=== PATIENT | female | born 1970 | race Caucasian/White ===

== ENCOUNTER 2016-11-03 21:44 | Emergency (ER) | payer BC ==
[~2016-11-03] VITALS: Ht 157.5 cm; Wt 68.0 kg
[2016-11-03 21:59] VITALS: BP 120/77
--- NOTE | 2016-11-03 22:05 | PHYS DOC ---
Past Medical History Past Medical History: No Pertinent History Past Surgical History: , Tubal ligation, Other Additional Past Surgical Histo: BLADDER SX Alcohol Use: Sober Social History Narrative: RECOVERING ADDICT Adult General Chief Complaint Chief Complaint: ANKLE PROBLEM [facility] HPI Patient is a 46 year old female that presents to the emergency Department with complaints of right ankle pain. She states she was walking down the steps when she misstepped on the last And describes an inversion type injury to the right ankle. She states that she felt a popping sensation at the time of the incident. She has been ambulatory on the extremity since the incident. She reports a previous fracture to this same ankle in 1995. Review of Systems Review of Systems Constitutional: Denies fever or chills [] Eyes: Denies change in visual acuity, redness, or eye pain [] HENT: Denies nasal congestion or sore throat [] Respiratory: Denies cough or shortness of breath [] Cardiovascular: No additional information not addressed in HPI [] GI: Denies abdominal pain, nausea, vomiting, bloody stools or diarrhea [] : Denies dysuria or hematuria [] Musculoskeletal: Ankle pain Integument: Denies rash or skin lesions [] Neurologic: Denies headache, focal weakness or sensory changes [] Endocrine: Denies polyuria or polydipsia [] Current Medications Current Medications Current Medications Medications (Trade) Dose Ordered Sig/Roya Start Time Stop Time Status Last Admin Dose Admin Naproxen (Naprosyn) 500 mg ONCE ONCE 11/03/16 22:15 11/03/16 22:16 DC Allergies Allergies Allergies Coded Allergies Type Severity Reaction Last Updated Verified Sulfa (Sulfonamide Antibiotics) Allergy Unknown 11/03/16 Yes Physical Exam Physical Exam Constitutional: Well developed, well nourished, no acute distress, non-toxic appearance. [] Extremities: The right lower extremity, right hip and right knee exam unremarkable. Rectal exam unremarkable. Right ankle minimal swelling over lateral malleolus. She is not tender to palpate over the lateral or medial malleolus. Achilles tendon is intact. She has no pain palpated fifth metatarsal. Neurovascular intact distally. Right ankle Aircast applied. Patient tolerated well. Neurovascularly intact post -application. Current Patient Data Vital Signs Vital Signs Date Time Temp Pulse Resp B/P (MAP) Pulse Ox O2 Delivery O2 Flow Rate FiO2 5/17/17 21:59 97.8 90 20 100 Room Air 97.8 EKG EKG [] Radiology/Procedures Radiology/Procedures Dr. Azul reviewed radiology film. No acute changes. [] Course & Med Decision Making Course & Med Decision Making Pertinent Labs and Imaging studies reviewed. (See chart for details) [] Dragon Disclaimer Dragon Disclaimer This electronic medical record was generated, in whole or in part, using a voice recognition dictation system. Departure Departure Impression: Primary Impression: Ankle sprain Disposition: HOME, SELF-CARE Condition: STABLE Patient Instructions: Ankle Sprain Scripts Naproxen (NAPROSYN) 500 Mg Tablet 1 TAB PO BID Y for PAIN, #20 TAB 1 Refill Prov: JARET MONTEZ APRN 11/03/16 JARET MONTEZ APRN November 03, 2016 22:05
[2016-11-03] MEDS ORDERED: NAPROXEN 500 MG TABLET PO ONE (22:15)
[2016-11-03] MEDS ORDERED: NAPR500T PO (22:25)
--- NOTE | 2016-11-04 08:01 | RAD ---
Right ankle, 3 views, 11/03/2016: History: Pain after inversion No fracture or dislocation is identified. There is mild soft tissue swelling laterally. IMPRESSION: No acute bony abnormality is detected.
== END 2016-11-03 22:41 | disposition home or self-care (01) ==
LOC: EDBD 21:44 → ER 21:44
DX: S93.401A Sprain of unspecified ligament of right ankle, initial encounter (principal); Z88.2 Allergy status to sulfonamides; X50.0XXA Overexertion from strenuous movement or load, initial encounter; Y93.89 Activity, other specified; Y92.89 Other specified places as the place of occurrence of the external cause; Y99.8 Other external cause status
CPT/HCPCS: 73610; 99284